=== PATIENT | male | born 1980 | race Hispanic/Latino ===

== ENCOUNTER → 2017-06-09 | Outpatient (CLI) | payer BC | LOC: SHCH 09:40 | PROVIDERS: ATTEND Internal Medicine Cardiovascular Disease | DX: R94.31 Abnormal electrocardiogram [ECG] [EKG] (principal); I10 Essential (primary) hypertension; E78.5 Hyperlipidemia, unspecified | CPT/HCPCS: 93306 ==

== ENCOUNTER → 2020-01-11 | Outpatient (CLI) | payer OTHER | END | disposition home or self-care (01) | LOC: OIH 14:01 | PROVIDERS: ATTEND Internal Medicine Cardiovascular Disease | DX: Z13.6 Encounter for screening for cardiovascular disorders (principal) | CPT/HCPCS: 75571 ==

== ENCOUNTER 2025-04-20 16:10 | Emergency (ER) | payer BC, OTHER ==
[~2025-04-20] VITALS: Ht 180.3 cm; Wt 132.9 kg
--- NOTE | 2025-04-20 16:11 | NUR ---
SEPSIS ALERT INITIATED.
--- NOTE | 2025-04-20 16:15 | NUR ---
PATIENT IN ROOM
[2025-04-20 16:55] LABS: INFLUENZA TYPE A Negative For Type A (NEGATIVE); INFLUENZA TYPE B Negative For Type B (NEGATIVE)
--- NOTE | 2025-04-20 17:00 | EKG ---
[facility] Test Date: 2025-04-20 Test Time: 16:54:34 Pat Name: LIZBETH COLLIER Department: [facility] Room: Gender: M Stretch Box Tender: [id number] : 1980 Requested By: ISRAEL AMAYA Order Number: [id number] Reading MD: Princess Choe Measurements Intervals Crapo Rate: 124 P: 64 PA: 132 QRS: 113 QRSD: 92 T: -18 QT: 298 QTc: 428 Interpretive Statements Sinus tachycardia Right axis deviation No previous ECG available for comparison Electronically Signed On 04-23-2025 08:55:29 GARNETT MACHINE OPERATOR by Princess Choe Please click the below link to view image of tracing.
[2025-04-20 17:05] VITALS: TEMP 101.8
[2025-04-20 17:24] LABS: NUCLEATED RED BLOOD CELLS 0.0 % (0.0-0.19); PLATELET COUNT (AUTO) 307 K/uL (130-400); RED BLOOD CELL COUNT(AUTO) 5.99 MIL/uL (4.50-6.20); RED CELL DISTRIBUTION WIDTH 13.6 % (11.0-15.5); WHITE BLOOD COUNT (AUTO) 15.9 K/uL (4.8-10.8)
--- NOTE | 2025-04-20 17:34 | ERN ---
ED Note History of Present Illness Stated Complaint: FLU SYMPTOMS Chief Complaint: Flu Symptoms Time Seen by MD: 16:50 Time Seen by Midlevel: 17:00 Dictation: Mr. Barnes is a 45-year-old male with history of morbid obesity, hypertension, and hyperlipidemia who presented to the emergency department this afternoon for evaluation of flu symptoms. He reports one week of fatigue, general weakness, decreased appetite, cough and congestion which he had thought was getting better. He states that he now has fever, chills, rapid heart rate, sore throat, and painful productive cough with brown tinged sputum. He denies shortness of breath, chest pain, edema, abdominal pain, nausea, vomiting, hematemesis, constipation, diarrhea, melena, hematochezia, dysuria, headache, dizziness, rash, stiff neck, or focal weakness/paresthesia. Patient meets criteria for sepsis with fever, marked tachycardia, and suspected pulmonary source. Sepsis protocol initiated including IV fluids, broad-spectrum antibiotics, blood cultures, and lactate measurement. Allergies: Coded Allergies: No Known Drug Allergies (Unverified Allergy, Unknown, 04/20/25) Home Meds Active Scripts Cefuroxime Axetil (Cefuroxime) 500 Mg Tablet, 1 TAB PO BID for 7 Days, #14 TAB 0 Refills Prov:NATHALY ESCALERA [facility] 04/20/25 Azithromycin (Azithromycin) 250 Mg Tablet, 1 TAB PO AD for 4 Days, #4 TAB 0 Refills 2 the first day followed by 1 for days 2-5 Prov:NATHALY ESCALERA [facility] 04/20/25 Benzonatate (Tessalon Perles) 100 Mg Cap, 100 MG PO TID PRN for cough, #15 CAP 0 Refills Prov:NATHALY ESCALERA [facility] 04/20/25 Past Medical History Past Medical History: High Cholesterol, Hypertension Surgical History: Other Surgical History Other: HERNIA REPAIR RN Note Reviewed/Agreed w/PFSH: Yes Review of System Dictation REVIEW OF SYSTEMS: CONSTITUTIONAL: Patient weight changes. Reports fatigue, general weakness, fever, and chills. EYES: Patient denies any visual symptoms. EARS, NOSE, AND THROAT: No difficulties with hearing. No symptoms of rhinitis. Reports sore throat CARDIOVASCULAR: Patient denies chest pains, palpitations, orthopnea and paroxysmal nocturnal dyspnea. RESPIRATORY: No dyspnea on exertion, no wheezing Reports painful cough now with brown tinged sputum. GI: No nausea, vomiting, diarrhea, constipation, abdominal pain, hematochezia or melena. : No urinary hesitancy or dribbling. No nocturia or urinary frequency. No abnormal urethral discharge. MUSCULOSKELETAL: Reports body aches. NEUROLOGIC: No chronic headaches, no seizures. Patient denies numbness, tingling or weakness. PSYCHIATRIC: Patient denies problems with mood disturbance. No problems with anxiety. ENDOCRINE: No excessive urination or excessive thirst. DERMATOLOGIC: Patient denies any rashes or skin changes. Initial Vital Sign VS Vital Signs Date Time Temp Pulse Resp B/P (MAP) Pulse Ox O2 Delivery O2 Flow Rate FiO2 04/20/25 16:11 101.8 144 20 160/91 95 Room Air 04/20/25 16:15 0 21 Physical Exam Dictation Vital signs: Reviewed. Fever 101.8. Constitutional: No acute distress. Significant other at bedside Head/Face: Normocephalic, atraumatic. Eyes: Periorbital areas with no swelling, redness, or edema. Lids and lashes are normal. Conjunctival injection is absent. Sclera anicteric. Pupils equal, round, reactive to light. ENT: Pinnas intact and no signs of trauma or erythema. Ear canals clear and no discharge. TMs no erythema. No nasal discharge or bleeding noted. Oropharynx with erythema/enlarged tonsils. no masses, exudates, or evidence of obstruction. Uvula midline. Mucous membranes dry. Speech is clear Neck: Trachea midline, no masses palpated, and no cervical lymphadenopathy. No swelling. Supple, full range of motion. Chest/Axilla: No tenderness, no crepitus, no paradoxical movement, no retractions. Cardiovascular: Regular rate, regular rhythm, no murmur, no gallops. Symmetric pulses. No peripheral edema. Tachycardic with heart rate 144 Respiratory: Tachypneic; RR 22. Lung sounds diminished bilaterally. No wheezes or rales. Congested cough/rhonchi noted. Room air SpO2 95%. Gastrointestinal: Obese No distention is appreciated. Bowel sounds are normal. No mass or organomegaly . There is no tenderness. No rebound. No rigidity. No voluntary or involuntary guarding. No Crenshaw's sign. Neurological: Normal speech, gross motor function intact, gross sensory function intact. No focal weakness/Paresthesia. No nuchal rigidity. No photophobia. Musculoskeletal/Extremities: All extremities have full range of motion, no pain or tenderness on palpation. Symmetric pulses. Integumentary: Intact. Skin is flushed, hot, and dry. Cap refill less than 3 seconds. IVF Sepsis Management IVF calculated by IBW?: Yes Results (Laboratory/Radiology) Laboratory/Radiology Laboratory Tests Test 04/20/25 16:15 04/20/25 17:14 04/20/25 18:25 Influenza Type A Antigen Negative For Type A Influenza Type B Antigen Negative For Type B White Blood Count 15.9 K/uL (4.8-10.8) H Red Blood Count 5.99 MIL/uL (4.50-6.20) Hemoglobin 16.6 g/dL (14.0-18.0) Hematocrit 49.0 % (42-54) Mean Corpuscular Volume 81.8 fL (79-99) Mean Corpuscular Hemoglobin 27.7 pg (27.0-33.0) Mean Corpuscular Hemoglobin Concent 33.9 g/dL (32.0-36.0) Red Cell Distribution Width 13.6 % (11.0-15.5) Platelet Count 307 K/uL (130-400) Mean Platelet Volume 9.9 fL (7.5-10.5) Immature Granulocyte % (Auto) 0.3 % (0-1) Neutrophils (%) (Auto) 77.1 % (40.0-77.0) H Lymphocytes (%) (Auto) 13.9 % (21.0-51.0) L Monocytes (%) (Auto) 8.2 % (3.0-13.0) Eosinophils (%) (Auto) 0.2 % (0.0-8.0) Basophils (%) (Auto) 0.3 % (0.0-5.0) Neutrophils # (Auto) 12.1 K/uL (1.8-7.7) H Lymphocytes # (Auto) 2.2 K/uL (1.0-4.8) Monocytes # (Auto) 1.3 K/uL (0.1-1.0) H Eosinophils # (Auto) 0.03 K/uL (0.00-0.70) Basophils # (Auto) 0.05 K/uL (0.00-0.20) Absolute Immature Granulocyte (auto 0.04 K/uL (0-1) Nucleated Red Blood Cells 0.0 % (0.0-0.19) Sodium Level 132 mmol/L (136-145) L Potassium Level 3.7 mmol/L (3.5-5.1) Chloride Level 99 mmol/L (101-111) L Carbon Dioxide Level 26 mmol/L (21-32) Blood Urea Nitrogen 12 mg/dL (7-18) Creatinine 1.2 mg/dL (0.5-1.3) Glomerular Filtration Rate Calc 76 mL/min (>90) Random Glucose 118 mg/dL (70-105) H Lactic Acid Level 1.6 mmol/L (0.8-2.5) Total Calcium 8.5 mg/dL (8.5-10.1) Total Bilirubin 0.8 mg/dL (0.2-1.0) Direct Bilirubin 0.2 mg/dL (0.0-0.3) Aspartate Amino Transf (AST/SGOT) 17 U/L (10-37) Alanine Aminotransferase (ALT/SGPT) 40 U/L (12-78) Alkaline Phosphatase 146 U/L (50-136) H Troponin I High Sensitivity 5 ng/L (4-75) B-Type Natriuretic Peptide 19 pg/mL (0-100) Total Protein 8.3 g/dL (6.0-8.3) Albumin 3.5 g/dL (3.5-5.0) Procalcitonin < 0.05 ng/mL (0.05-0.5) L Urine Color YELLOW (YELLOW) Urine Appearance CLEAR (CLEAR) Urine pH 6.0 (5.0-8.0) Urine Specific [place] 1.031 (1.001-1.031) Urine Protein 30 mg/dL (NEGATIVE) H Urine Glucose (UA) NEGATIVE mg/dL (NEGATIVE) Urine Ketones 5 mg/dL (NEGATIVE) H Urine Occult Blood NEGATIVE (NEGATIVE) Urine Nitrate NEGATIVE (NEGATIVE) Urine Bilirubin NEGATIVE mg/dL (NEGATIVE) Urine Urobilinogen 0.2 mg/dL (0.2-1.0) Urine Leukocyte Esterase NEGATIVE S[place]/uL Urine RBC 0-1 /HPF (0-1) Urine WBC 0-1 /HPF (0-1) Urine Squamous Epithelial Cells RARE /HPF (0-2) Urine Bacteria None /HPF (None Seen) Labs Reviewed?: Yes EKG Comment: EKG Interpretation: Time Reviewed: 1654 Ventricular rate: 124 bpm TN Interval: 132 ms QRS duration: [address] segment elevation or depression. Clinical impression: Sinus tachycardia EKG Reviewed and interpreted by Dr. Krystina Lovell X-RAY Comment: Chest x-ray with no focal consolidation as interpreted by myself; radiologist interpretation to follow. ED Course ED Course Orders Procedure Category Date Status Time Influenza Type A & B, LAB 04/20/25 Complete Rapid 16:24 Acetaminophen 500mg PHA 04/20/25 Complete Tab (Tylenol 500mg T 16:30 Chest 1vw RAD 04/20/25 Resulted 16:24 Cbc Without LAB 04/20/25 Complete Differential 16:53 Basic Metabolic Panel LAB 04/20/25 Complete 16:53 Lactic Acid LAB 04/20/25 Complete 16:53 Blood Cult LU 04/20/25 In Process 16:53 12 Lead Ekg Tracing- EKG 04/20/25 Complete Technical 16:53 Chest 1vw RAD 04/20/25 Resulted 16:53 Hepatic Function Panel LAB 04/20/25 Complete 17:20 0.9%Nacl 1000ml (Ns PHA 04/20/25 Complete 1000ml) 17:30 Ketorolac PHA 04/20/25 Complete Tromethamine 15mg/Ml 17:30 Procalcitonin LAB 04/20/25 Complete 17:22 Ceftriaxone 2gm Vial PHA 04/20/25 Complete (Rocephin 2gm Inj) 17:30 0.9%Nacl 1000ml (Ns PHA 04/20/25 Complete 1000ml) 17:30 Urinalysis Profile LAB 04/20/25 Complete 17:30 Troponin I High LAB 04/20/25 Complete Sensitivity 17:32 B-Type Natriuretic LAB 04/20/25 Complete Peptide 17:32 Azithromycin PHA 04/20/25 Complete (Zithromax) 19:00 Cbc With Differential LAB 04/20/25 Complete 17:14 Current Medications Medications (Trade) Dose Ordered Sig/Todd Route PRN Reason Start Time Stop Time Status Last Admin Dose Admin Acetaminophen (TYLenol 500MG TAB) 1,000 mg ONCE PO 04/20/25 16:30 04/20/25 20:06 DC 04/20/25 17:05 Azithromycin (Zithromax) 500 mg ONCE PO 04/20/25 19:00 04/20/25 20:06 DC 04/20/25 19:14 Ceftriaxone Sodium (Rocephin 2gm Inj) 2 gm ONCE IVPB 04/20/25 17:30 04/20/25 20:06 DC 04/20/25 18:22 Ketorolac Tromethamine (toRADol) 15 mg ONCE IV 04/20/25 17:30 04/20/25 20:06 DC 04/20/25 18:23 Sodium Chloride 1,000 ml @ 0 mls/hr ONCE IV 04/20/25 17:30 04/20/25 20:06 DC 04/20/25 18:21 Sodium Chloride 1,000 ml @ 0 mls/hr ONCE IV 04/20/25 17:30 04/20/25 20:06 DC 04/20/25 18:22 Vital Signs Date Time Temp Pulse Resp B/P (MAP) Pulse Ox O2 Delivery O2 Flow Rate FiO2 04/20/25 19:17 100.0 97 16 140/77 97 Room Air* 0 21 04/20/25 17:05 101.8 04/20/25 16:15 101.8 144 20 160/91 95 Room Air* 0 21 04/20/25 16:11 101.8 144 20 160/91 95 Room Air Arrival, patient was febrile and tachycardic. Initial evaluation included laboratory studies, blood cultures, EKG and chest x-ray. Chest x-ray without focal consolidation; however, imaging may lag behind clinical infection, particularly in early disease and an obese patients. Given fever, tachycardia, leukocytosis sees WBCs 15.9), productive cough, and lack of alternatives sores, concern remains for lower respiratory infection/pneumonia. Acetaminophen was administered for fever. Lactate was not elevated, and troponin and BNP were negative. Influenza testing was negative. During ED course, patient demonstrated clinical improvement, with heart rate decreasing to 90, resolution of fever, and subjective improvement in symptoms. He remained hemodynamically stable, oxygenating well on room air and tolerated oral intake. Given improvement with treatment, stable vital signs, inability to take oral medications, patient was deemed stable for discharge with oral antibiotics to complete treatment for community-acquired pneumonia and strict return precautions. Medical Decision Making MDM MDM: Differential diagnosis: Sepsis, bacterial pneumonia, influenza, COVID-19, remains ischemia Rationale: Tests considered and ordered secondary to shared decision making include: labs, ECG and radiology Previous outside records reviewed: Old ER visits. Risk of complication and/or morbidity or mortality of patient management: None Medications-Per medication reconciliation Need for hospitalization: Patient does meet criteria for hospitalization. Need for emergency major/minor surgery: No There are no social concerns with this patient. Prescription drug management: Cefuroxime, azithromycin, Tessalon Perles Prescriptions will include symptomatic care Patient's prior external medical records from other ER visits were reviewed by me as indicated. Prior testing and results from previous visits were reviewed. Prior tests were taken into account with medical decision making and resource utilization, independent historian/historians were used to obtain complete medical history. I independently interpreted the test that were performed, results were reviewed by me and considered findings on radiology if ordered. Medical management and examination interpretation discussions were had by me with other qualified healthcare professionals as indicated for the patient's care. DX & DISP Disposition: Discharge Departure Impression: Primary Impression: Community acquired bacterial pneumonia Condition: Stable Scripts Cefuroxime Axetil (Cefuroxime) 500 Mg Tablet 1 TAB PO BID for 7 Days, #14 TAB 0 Refills Prov: NATHALY ESCALERA [facility] 04/20/25 Azithromycin (Azithromycin) 250 Mg Tablet 1 TAB PO AD for 4 Days, #4 TAB 0 Refills 2 the first day followed by 1 for days 2-5 Prov: NATHALY ESCALERA [facility] 04/20/25 Benzonatate (Tessalon Perles) 100 Mg Cap 100 MG PO TID PRN for cough, #15 CAP 0 Refills Prov: NATHALY ESCALERA [facility] 04/20/25 Additional Instructions: Is take all medications exactly as prescribed. Cefuroxime take 500 mg twice daily for the full prescribed course. Azithromycin 250 mg daily for the next four days. You have already received the initial 500 mg dose while in the ER. Tessalon Perles every 8 hours as needed for cough. Rest and drink plenty of fluids. Avoid smoking or vaping. Use humidifier if helpful for cough. Avoid alcohol while recovery. Use Tylenol for fever or discomfort. Resume light activity as tolerated. Avoid strenuous exertion until symptoms improve. Follow up with your primary care provider within 2-3 days. Seek earlier follow up if symptoms are not improving after 48-72 hours of antibiotics. Return to the emergency department immediately if you develop: Worsening shortness of breath, chest pain, persistent/worsening fever, confusion/dizziness, coughing up large amounts of blood, inability to keep fluids/medications down, or any new/concerning symptoms. Your symptoms are being treated as pneumonia based on your clinical presentation. Imaging may appear normal early in the course of infection. Close monitoring at home and completing your medications or important for recovery. Referrals: NEPTALI BRYAN MD (PCP) Time of Disposition: 19:04 I performed a substantive portion of the visit. I have reviewed and personally made and approve the management plan that is documented in the notes by myself with CHAN/resident. I acknowledged full responsibility for the patient's management plan. NATHALY ESCALERA Apr 20, 2025 17:33 ISRAEL LOVELL DO Apr 22, 2025 19:40
[2025-04-20 17:36] LABS: CREATININE 1.2 mg/dL (0.5-1.3); GLOMERULAR FILTR. RATE CALC 76.0 mL/min (>90); GLUCOSE,RANDOM 118.0 mg/dL (70-105); SODIUM SERUM 132.0 mmol/L (136-145); UREA NITROGEN, BLOOD 12.0 mg/dL (7-18)
--- NOTE | 2025-04-20 17:41 | HMCIMG ---
EXAM: CR Chest, 1 View. CLINICAL HISTORY: flu COMPARISON: Radiograph dated December 01, 2007. FINDINGS: LUNGS: There is no mass, infiltrate, or acute pulmonary abnormality. PLEURAL SPACES: No pleural effusion or pneumothorax. MEDIASTINUM: Cardiac size and mediastinal contours within normal limits. BONES: No aggressive appearing osseous lesion seen. IMPRESSION: No acute cardiopulmonary pathology is evident. /Kinde
[2025-04-20 17:47] LABS: ASPARTATE AMINOTRANSFERASE 17.0 U/L (10-37); TOTAL PROTEIN, SERUM 8.3 g/dL (6.0-8.3)
[2025-04-20] MEDS: 0.9%NACL 1000ML 1,000 ML IV SCH ×2 (18:21→18:22)
--- NOTE | 2025-04-20 18:37 | HMCIMG ---
EXAM: CR Chest, 1 View. CLINICAL HISTORY: PROTOCOL COMPARISON: CR - CHEST 1VW - 04/20/25 16:36 EST FINDINGS: LUNGS: There is no mass, infiltrate, or acute pulmonary abnormality. PLEURAL SPACES: No pleural effusion or pneumothorax. MEDIASTINUM: Cardiac size and mediastinal contours within normal limits. BONES: No acute osseous abnormality. IMPRESSION: No acute cardiopulmonary pathology is evident. /[place]
[2025-04-20 18:45] LABS: IMMATURE GRANULOCYTE ABSOLUTE 0.04 K/uL (0-1)
[2025-04-20 18:55] LABS: APPEARANCE,URINE CLEAR (CLEAR); GLUCOSE, URINE (UA) NEGATIVE (NEGATIVE); LEUKOCYTE ESTERASE ,URINE NEGATIVE Leu/uL (NEGATIVE); NITRATE,URINE NEGATIVE (NEGATIVE); OCCULT BLOOD,URINE NEGATIVE (NEGATIVE)
[2025-04-20 18:57] LABS: ADD UA MICROSCOPIC YES
[2025-04-20 18:59] LABS: SQUAMOUS EPITHELIAL CELL,UR RARE /HPF (0-2)
[2025-04-20] MEDS ORDERED: BENZ-39 PO (19:02)
[2025-04-20] MEDS ORDERED: AZIT250T9 PO (19:02)
[2025-04-20] MEDS ORDERED: CEFU500T67 PO (19:02)
[2025-04-20] MEDS: AZITHROMYCIN 250 MG TABLET PO SCH (19:14)
[2025-04-20 19:17] VITALS: BP 140/77; PULSE 97; RESP 16; TEMP 100; O2SAT 97
== END 2025-04-20 20:06 | disposition home or self-care (01) ==
LOC: EDH 16:10
DX: J15.9 Unspecified bacterial pneumonia (principal); E78.00 Pure hypercholesterolemia, unspecified; I10 Essential (primary) hypertension; E66.01 Morbid (severe) obesity due to excess calories; Z98.890 Other specified postprocedural states
CPT/HCPCS: 99284; 96365; 71045 ×2; 96375; 80076; 84484; 80048; 83880; 85025; 87040 ×2; 87804 ×2; 83605; 81001; 36415; 93005; 84145; 85027; J1885; J7030; J0696